=== PATIENT | male | born 1965 | race Caucasian/White ===

== ENCOUNTER 2017-11-21 08:46 | Emergency (ER) | payer OTHER ==
[~2017-11-21] VITALS: Ht 170.2 cm; Wt 106.3 kg
[~2017-11-21 08:46] MED LIST: CEPHALEXIN500 M2 NG; GLUCOPHAGE500 MG PO; HYDROCHLOROTH12.5 M3 NG; JANUMET 50/11 TABLET PO; LEVOTHROID,SYN0.1 MG PO; LIPITOR10 MG PO; LORTAB 5-325 M1 EACH PO; NOVOLIN,HU100 UNITS1 SC; SYNTHROID25 MCG PO; VIGAMOX 0.60 DROP/3 LEFT EYE; VOLTAREN 0.1%2.5 ML LEFT EYE; ZESTRIL,PRINIV2.5 MG PO
[2017-11-21 11:23] VITALS: BP 167/73
== END 2017-11-21 11:24 | disposition home or self-care (01) ==
LOC: EME 08:46
DX: S20.219A Contusion of unspecified front wall of thorax, initial encounter (principal); R00.0 Tachycardia, unspecified; V49.49XA Driver injured in collision with other motor vehicles in traffic accident, initial encounter; Y92.410 Unspecified street and highway as the place of occurrence of the external cause; E11.9 Type 2 diabetes mellitus without complications; I10 Essential (primary) hypertension; Z87.891 Personal history of nicotine dependence; Z79.4 Long term (current) use of insulin
CPT/HCPCS: 71046; 93005; 99281; 99284

== ENCOUNTER 2018-03-11 21:00 | Emergency (ER) | payer OTHER ==
[~2018-03-11] VITALS: Ht 170.2 cm; Wt 110.0 kg
[2018-03-11 21:39] LABS: BASOPHIL (%) 0.2 % (0-1); EOSINOPHIL (%) 0.2 % (0-5); HEMATOCRIT 40.1 % (38.0-50.0); HEMOGLOBIN 13.8 G/DL (12.5-16.6); IMMATURE GRANULOCYTE (%) 0.4 % (0.0-0.7); LYMPHOCYTE (%) 33.9 % (15-42); LYMPHOCYTE COUNT 1.9 K/uL (1.0-2.8); MCH 30.1 PG (29.0-34.0); MCHC 34.4 G/DL (30.0-36.0); MCV 87.6 FL (86-99); MONOCYTE (%) 12.2 % (3-12); MONOCYTE COUNT 0.7 K/uL (0-0.8); NEUTROPHIL (%) 53.1 % (45-76); NEUTROPHIL COUNT 2.9 K/uL (1.8-6.4); PLATELET COUNT 206 K/uL (156-360); RBC DIS.WIDTH-CV 11.8 % (11.8-14.6); RBC DIS.WIDTH-SD 37.8 % (39-53); RED BLOOD COUNT 4.58 M/uL (4.00-5.50); WHITE BLOOD COUNT 5.5 K/uL (4.1-10.2)
[2018-03-11 21:50] LABS: CHLORIDE 99 mEq/L (99-109); POTASSIUM 4.2 mEq/L (3.7-5.4); SODIUM 137 mEq/L (136-147)
[2018-03-11 21:52] LABS: GLUCOSE 324 mg/dL (70-99)
[2018-03-11 21:55] LABS: CREATININE 1.2 mg/dL (0.6-1.3); GFR ESTIMATE (CALCULATED) > 59 mL/min/ (58.99-99999)
[2018-03-11 21:56] LABS: UREA NITROGEN (BUN) 15 mg/dL (9-23)
[2018-03-11 22:45] LABS: APPEARANCE CLEAR ((CLEAR)); BILIRUBIN NEGATIVE; BLOOD NEGATIVE; COLOR YELLOW ((YELLOW)); GLUCOSE (STRIP) >=500; KETONES NEGATIVE; LEUKOCYTES NEGATIVE; NITRITE NEGATIVE; PROTEIN (STRIP) NEGATIVE; SPECIFIC GRAVITY 1.025 (1.000-1.030); UCUL ADDED? NO
[2018-03-12 00:50] VITALS: BP 136/67
[2018-03-12] MEDS ORDERED: SYNTHROID100 MCG PO (18:23)
== END 2018-03-12 00:53 | disposition home or self-care (01) ==
LOC: EME 21:00
PROVIDERS: Physician Assistant
DX: L03.115 Cellulitis of right lower limb (principal); E11.9 Type 2 diabetes mellitus without complications; I10 Essential (primary) hypertension; E03.9 Hypothyroidism, unspecified; F32.9 Major depressive disorder, single episode, unspecified; Z79.4 Long term (current) use of insulin; Z87.891 Personal history of nicotine dependence; Z87.2 Personal history of diseases of the skin and subcutaneous tissue; Z98.890 Other specified postprocedural states
CPT/HCPCS: 73590; 80048; 81003; 83605; 83880; 85025; 87040; 87147; 87205; 87801; 99281; 99284; J0696; J7030